=== PATIENT | male | born 1980 | race Two or more races ===

== ENCOUNTER 2024-12-08 13:23 | Emergency (ER) | payer OTHER ==
[~2024-12-08] VITALS: Ht 172.7 cm; Wt 81.6 kg
[2024-12-08] MEDS ORDERED: KETOROLAC TROMETHAMINE 30 MG VIAL IM STA (14:58)
[2024-12-08] MEDS ORDERED: DOXYCYCLINE HYCLATE 100 MG TABLET PO STA (15:03)
[2024-12-08] MEDS ORDERED: CEFTRIAXONE SODIUM 1,000 MG VIAL IM STA (15:03)
[2024-12-08] MEDS ORDERED: CEFTRIAXONE SODIUM 1,000 MG VIAL ONE (15:10)
[2024-12-08] MEDS ORDERED: KETOROLAC TROMETHAMINE 30 MG VIAL ONE (15:10)
[2024-12-08] MEDS ORDERED: DOXYCYCLINE HYCLATE 100 MG CAPSULE PO STA (16:15)
[2024-12-08 16:23] LABS: HEMATOCRIT 43.5 % (39.0-48.0); HEMOGLOBIN 15.1 g/dL (13-16.00); MEAN CELL VOLUME 88.3 fL (80.0-100.00); MEAN CORPUSCULAR HEMOGLOBIN 30.7 pg (27.00-32.0); MEAN CORPUSCULAR HGB CONC 34.8 g/dl (32.0-36.0); PLATELET COUNT 252 K/uL (150-450); RED BLOOD COUNT 4.93 M/uL (4.00-6.00); RED CELL DISTRIBUTION WIDTH 13.5 % (11.5-14.5)
[2024-12-08 16:57] LABS: PH,URINE 5.5 (5.0-8.0); URINE APPEARANCE Clear; URINE BILIRRUBIN Negative (NEGATIVE); URINE BLOOD Negative; URINE COLOR Yellow; URINE GLUCOSE Negative (NEGATIVE); URINE KETONE Trace (NEGATIVE); URINE LEUKOCYTE Negative; URINE NITRATE Negative; URINE PROTEIN Negative (NEGATIVE); URINE UROBILINOGEN 0.2 E.U./dl
[2024-12-08 16:58] LABS: URINE BACTERIA 13.4 uL (0.0-1933); URINE EPITHELIAL CELLS 3.6 uL (0.0-38.8); URINE RBC 6.4 uL (0.0-20.8); URINE WBC 4.4 uL (0.0-23.2)
[2024-12-08 17:33] LABS: URINE CAST 0.29 uL (0.0-1.40)
[2024-12-08] MEDS ORDERED: MONODOX100 MG PO (17:50)
== END 2024-12-08 18:23 | disposition home or self-care (01) ==
LOC: ER 13:23
PROVIDERS: General Practice
DX: R36.9 Urethral discharge, unspecified (principal)